=== PATIENT | male | born 1980 | race Caucasian/White ===

== ENCOUNTER → 2024-11-26 | Outpatient (REF) | payer OTHER ==
[2024-11-26 14:10] LABS: PLATELET COUNT, AUTOMATED 226 10^3/uL (150-450)
[2024-11-26 14:16] LABS: ALT/SGPT 33.0 U/L (7.0-40); AST/SGOT 45.0 U/L (<34); CALCIUM LEVEL 9.5 MG/DL (8.5-10.1); CARBON DIOXIDE LEVEL 31.0 MMOL/L (20-31); CHLORIDE LEVEL 101.0 MMOL/L (98-107); CHOLESTEROL LEVEL 194.0 MG/DL (<200); CHOLESTEROL RISK RATIO 2.64 (<5); CREATININE FOR GFR 1.24 MG/DL (0.70-1.30); GLOMERULAR FILTRATION RATE 73.5 (>60); LDL CHOLESTEROL 110.6 MG/DL (<100); NON-HDL-C 120.6 MG/DL; POTASSIUM SERUM 4.3 MMOL/L (3.5-5.1); PSA SCREENING 0.58 NG/ML (< 4.00); SODIUM LEVEL 140.0 MMOL/L (136-145); TRIGLYCERIDES LEVEL 50.0 MG/DL (<150)
[2024-11-26 14:20] LABS: FREE T4 1.18 NG/DL (0.89-1.76); TESTOSTERONE 877.0 NG/DL (241-827)
== END ==
LOC: M SFHCADAM 07:14
PROVIDERS: ATTEND Physician Assistant
DX: F41.8 Other specified anxiety disorders (principal); I10 Essential (primary) hypertension; Z79.890 Hormone replacement therapy; K21.9 Gastro-esophageal reflux disease without esophagitis; Z13.220 Encounter for screening for lipoid disorders; R35.1 Nocturia

== ENCOUNTER → 2025-01-20 | Outpatient (CLI) | payer OTHER | LOC: EDUNIT# 11:30 → M CARPUL 12:03 | PROVIDERS: ATTEND Physician Assistant | DX: I10 Essential (primary) hypertension (principal) ==